=== PATIENT | female | born 1980 | race Two or more races ===

== ENCOUNTER 2016-04-04 16:23 | Emergency (ER) | payer MEDICAID ==
--- NOTE | 2016-04-04 16:55 | ER Document Report ---
ED Medical Screen (RME) - General Stated Complaint: SORE THROAT,COUGH,BODY ACHES Notes: 36 yo female c/o flu like symptoms since yesterday, also c/o urinary hesitancy and lower back pain.
--- NOTE | 2016-04-04 19:27 | ER Document Report ---
ED General - General Chief Complaint: Flu Symptoms Stated Complaint: SORE THROAT,COUGH,BODY ACHES Mode of Arrival: Ambulatory Information source: Patient Notes: Patient is 36 yo female who presents with 1 day history of generalized body aches, sore throats, non-productive cough and fever. She also endorses associated urinary hesitancy and low back pain. She states she has not taken any medication for this. She does endorse sick contact (step-daughter with strep pharyngitis) but denies recent travel. Daughter is here with same symptoms. TRAVEL OUTSIDE OF THE [place] IN LAST 30 DAYS: No - Related Data Allergies/Adverse Reactions: No Known Allergies Allergy (Unverified 04/04/16 16:54) Past Medical History - Social History Smoking Status: Current Every Day Smoker Chew tobacco use (# tins/day): No Frequency of alcohol use: None Drug Abuse: None Family History: Reviewed & Not Pertinent Patient has suicidal ideation: No Patient has homicidal ideation: No Renal/ Medical History: Denies: Hx Peritoneal Dialysis Review of Systems - Review of Systems Constitutional: See HPI EENT: See HPI Cardiovascular: No symptoms reported Respiratory: See HPI Gastrointestinal: No symptoms reported Genitourinary: No symptoms reported Female Genitourinary: No symptoms reported Musculoskeletal: No symptoms reported Skin: No symptoms reported Hematologic/Lymphatic: No symptoms reported Neurological/Psychological: No symptoms reported Physical Exam - Vital signs Vitals: Temp Pulse Resp Pulse Ox 100.1 F 82 20 98 04/04/16 19:21 04/04/16 19:21 04/04/16 19:21 04/04/16 19:21 Interpretation: Febrile - Notes Notes: PHYSICAL EXAM: CONSTITUTIONAL: Alert and oriented, well-appearing and in no acute distress. Ill -appearing. Febrile (100.1) in triage. HENT: Normocephalic, atraumatic. Ear canals without erythema or foreign body, TMs pearly lowry with good bony landmarks. Nares clear without erythema, septal hematoma or deviation, airway patent. Oropharynx erythematous without tonsilar exudate or malocclusion. Trachea midline. Uvula midline. Moist mucous membranes. EYES: Pupils equal round and reactive to light, EOM intact. Sclera anicteric, conjunctiva are normal. No entrapment. NECK: supple without lymphadenopathy. ROM intact. No meningeal signs. HEART: Regular rate and rhythm without murmurs. LUNGS: CTAB and equal. No wheezes, rales or rhonchi. GI: Normactive bowel sounds. Nontender, non-distended. No organomegaly. no CVAT. SKIN: Warm and dry. Normal turgor. No rashes or lesions noted. Course - Re-evaluation Re-evalutation: 04/04/16 20:51 Patient seen and examined. Concerning for strep pharyngitis vs influenza. Will swab for both. Lungs CTAB - will defer imaging at this time. 04/04/16 20:52 Reviewed lab results - negative for influenza and strep. Based on exam and history, will treat for strep pharyngitis. Given dose of PO amoxicillin here. Discharged home in stable condition, follow-up with primary care doctor. Supportive care treatments discussed. - Vital Signs Vital signs: Temp Pulse Resp BP Pulse Ox 100.1 F 82 20 118/69 98 04/04/16 19:21 04/04/16 19:21 04/04/16 19:21 04/04/16 19:22 04/04/16 19:21 Discharge - Discharge Clinical Impression: Strep pharyngitis Condition: Stable Disposition: HOME, SELF-CARE Additional Instructions: SORE THROAT: Sore throats may be caused by viruses, bacteria, or fungi. Most are due to a virus, and must get better on their own. Bacterial sore throats, particularly those due to "strep," need treatment with antibiotics. If an antibiotic is prescribed, be sure to take the medication for a full 10 days. Failure to take the antibiotic can result in complications such as rheumatic fever. Sometimes, an injection of antibiotics is given instead of pills or liquid. This single "shot" is equal in effectiveness to the oral medication. To relieve symptoms, take acetaminophen for pain. Sip clear liquids frequently, or eat popsicles or ice chips. Anesthetic sprays or lozenges may help. Make sure the air in the room is not too dry. Avoid using decongestants or antihistamines. Call the doctor if there is no improvement in two days, or if you have difficulty breathing, increasing throat pain, high fever, rash, or frequent vomiting. STREP THROAT: Your sore throat is due to the streptococcus germ (strep throat). Strep throat usually makes you feel quite ill with fever and aches, headache, swollen sore throat, and tender bumps under the angles of the jaw. Strep throat requires antibiotic treatment. Although the sore throat may go away by itself, complications such as rheumatic fever, kidney disease, or throat abscess can occur. We usually prescribe antibiotics by mouth. Be sure to take the medicine until it's gone. If you stop early, the strep may come back. If you are vomiting, are severely ill, or can't remember to take pills, we can give you an antibiotic shot. Take acetaminophen or ibuprofen for pain and fever. Sip frequent clear liquids, or use popsicles or ice chips. Anesthetic sprays or lozenges may help. Make sure the air in the room is not too dry. Avoid using decongestants or antihistamines. Call the doctor if there is no improvement in three days, or if you have difficulty breathing, increasing throat pain, high fever, rash, or frequent vomiting. PENICILLIN V K: You have been given a prescription for Penicillin VK. Your physician has determined that this is the best antibiotic for your condition. Pen VK can be taken with meals, however more of the antibiotic gets into the bloodstream if it's taken on an empty stomach. Penicillin usually has no side effects. However, allergy to penicillins is common. If you have had an allergic reaction to any drug of the penicillin family, you should never take any other penicillin. Notify your doctor at once if you develop hives, itching, swelling, faintness, or shortness of breath. STEROID MEDICATION: You have been given a medicine of the cortisone/steroid class. This medication is used to control inflammation or allergy. It is usually only given for a short period of time, until the acute process subsides. There are usually no side effects from short-term use of cortisone-like medications. Some persons feel an increased sense of well-being and are not sleepy at bedtime. Long-term use of cortisone medications is best avoided, unless required for a severe condition. If your condition does not remit, or relapses after the course of corticosteroid medication, you should consult your physician. FOLLOW-UP CARE: If you have been referred to a physician for follow-up care, call the physician s office for an appointment as you were instructed or within the next two days. If you experience worsening or a significant change in your symptoms, notify the physician immediately or return to the Emergency Department at any time for re-evaluation. Prescriptions: Penicillin V Potassium [Penicillin Vk 500 mg Tablet] 500 mg PO BID #20 tablet Forms: Return to Work Referrals: LANA BLACKBURN [Primary Care Provider] - Follow up in 1 week
[2016-04-04 19:52] LABS: APPEARANCE,URINE CLEAR; BILIRUBIN,URINE NEGATIVE (NEGATIVE); GLUCOSE, URINE NEGATIVE (NEGATIVE); KETONES,URINE NEGATIVE (NEGATIVE); LEUKOCYTE ESTERASE,URINE NEGATIVE (NEGATIVE); NITRITE,URINE NEGATIVE (NEGATIVE); PROTEIN,URINE NEGATIVE (NEGATIVE); URINE SPECIFIC GRAVITY 1.009; UROBILINOGEN,URINE NEGATIVE mg/dL (<2.0)
[2016-04-04] MEDS ORDERED: AMOXICILLIN TRIHYDRATE 500 MG CAPSULE PO ONE (20:48)
[2016-04-04 21:38] VITALS: BP 128/67
== END 2016-04-04 21:38 | disposition home or self-care (01) ==
LOC: ER 16:23
DX: J02.0 Streptococcal pharyngitis (principal); R05 Cough; R52 Pain, unspecified; R50.9 Fever, unspecified; F17.210 Nicotine dependence, cigarettes, uncomplicated
CPT/HCPCS: 81001; 87070; 87804; 87880; 99283

== ENCOUNTER 2016-08-20 18:33 | Emergency (ER) | payer MEDICAID ==
[2016-08-20 18:39] VITALS: BP 118/67
--- NOTE | 2016-08-20 19:59 | ER Document Report ---
HPI - HPI Patient complains to provider of: spider bite Onset: Last week Onset/Duration: Sudden Quality of pain: Achy Pain Level: 4 Context: Presents to the emergency department with complaints of spider bite to her left lateral ankle. 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 She did not see what bit her. Today she noticed the area was hurting more. She believes that she sees tw she reports it blistered up earlier today. O pinprick fluid could be a spider bite. Associated Symptoms: None Exacerbated by: Denies Relieved by: Denies Similar symptoms previously: No Recently seen / treated by doctor: No - DERM Skin Color: Normal Past Medical History - General Information source: Patient - Social History Smoking Status: Unknown if Ever Smoked Cigarette use (# per day): No Frequency of alcohol use: None Drug Abuse: None Occupation: cleans [employer] Lives with: Family Family History: Reviewed & Not Pertinent Patient has suicidal ideation: No Patient has homicidal ideation: No - Medical History Medical History: Negative Renal/ Medical History: Denies: Hx Peritoneal Dialysis Surgical Hx: Negative Vertical Provider Document - CONSTITUTIONAL Agree With Documented VS: Yes Exam Limitations: No Limitations General Appearance: WD/WN, No Apparent Distress - INFECTION CONTROL TRAVEL OUTSIDE OF THE [place] IN LAST 30 DAYS: No - HEENT HEENT: Atraumatic, Normocephalic - NECK Neck: Supple - RESPIRATORY Respiratory: No Respiratory Distress O2 Sat by Pulse Oximetry: 100 - CARDIOVASCULAR Cardiovascular: Regular Rate - MUSCULOSKELETAL/EXTREMETIES Musculoskeletal/Extremeties: MAEW, FROM, Tender - left lateral ankle ttp, good pedal pulse, no swelling/no warmth/ no discharge, slight erythema noted around horizontal closed wound ~ 1.5 cm long pt reports something bit her. No obvious bite hoyt, - NEURO Level of Consciousness: Awake, Alert, Appropriate Motor/Sensory: No Motor Deficit - DERM Integumentary: Warm, Dry Course - Re-evaluation Re-evalutation: 08/20/16 Patient instructed on signs and symptoms of infection. Instructed to return to the emergency department for increasing redness swelling warmth discharge. She verbalized understanding to all instructions - Vital Signs Vital signs: Temp Pulse Resp BP Pulse Ox 98.7 F 61 16 118/67 100 08/20/16 18:36 08/20/16 18:36 08/20/16 18:36 08/20/16 18:36 08/20/16 18:36 Discharge - Discharge Clinical Impression: Insect bite Qualifiers: Encounter type: initial encounter Qualified Code(s): W57.XXXA - Bitten or stung by nonvenomous insect and other nonvenomous arthropods, initial encounter Condition: Stable Disposition: HOME, SELF-CARE Instructions: Cephalexin ([facility]), Insect Bites ([facility]), Prophylactic Antibiotic ( [facility]), Antibiotic Ointment Protection ([facility]) Additional Instructions: *You have been treated for a insect bite *Take medication as prescribed *Monitor the site for signs of infection such as increasing pain, redness, swelling, warmth *Keep the area clean, apply topical antibiotic ointment *Follow up with a primary care provider within one week for recheck *Return to ED for signs of infection, worsening condition, changes, needs Prescriptions: Cephalexin Monohydrate [Keflex 250 Mg Capsule] 250 mg PO QID #20 capsule
== END 2016-08-20 20:49 | disposition home or self-care (01) ==
LOC: ER 18:33
DX: T63.301A Toxic effect of unspecified spider venom, accidental (unintentional), initial encounter (principal); W57.XXXA Bitten or stung by nonvenomous insect and other nonvenomous arthropods, initial encounter
CPT/HCPCS: 99281